=== PATIENT | female | born 1965 | race Caucasian/White ===

== ENCOUNTER 2017-09-24 15:25 | Observation (INO) | payer OTHER ==
[~2017-09-24] VITALS: Ht 162.6 cm; Wt 51.3 kg
--- NOTE | 2017-09-24 15:37 | ED CARDIAC/CP/PALPITATIONS ---
History of Present Illness General Chief Complaint: Chest Pain Stated Complaint: CP X3DAYS DOWN LEFT ARM NUMBNESS IN LEFT HAND Source: patient Exam Limitations: no limitations Vital Signs & Intake/Output Vital Signs & Intake/Output Vital Signs Date Time Temp Pulse Resp B/P B/P Pulse O2 O2 Flow FiO2 Mean Ox Delivery Rate 09/25 1516 102/64 09/25 1415 98.1 75 18 98/60 98 Room Air 09/25 0800 Room Air 09/25 0657 97.4 69 18 100/64 99 Room Air 09/24 2102 Room Air 09/24 2043 98.6 73 18 98/70 98 Room Air 09/24 2016 98.7 96 20 102/70 97 09/24 1843 98.7 79 18 118/68 100 Room Air 09/24 1719 Room Air 09/24 1640 74 16 136/86 100 Room Air ED Intake and Output 09/25 0000 09/24 1200 Intake Total 475 Output Total 300 Balance 175 Intake, IV 125 Intake, Oral 350 Number 0 Bowel Movements Output, Urine 300 Patient 113 lb Weight Weight Estimated Measurement Method Allergies Coded Allergies: Sulfa (Sulfonamide Antibiotics) (Mild, HIVES 09/24/17) Reconcile Medications Aspirin (Aspirin*) 81 MG TAB.CHEW 1 TAB PO DAILY Heart health Atorvastatin Calcium 40 MG TABLET 1 TAB PO DAILY Heart health Cholecalciferol (Vitamin D3) (Vitamin D) (Unknown Strength) TABLET (Unknown Dose) PO DAILY SUPPLEMENT (Reported) Cyanocobalamin (Vitamin B-12) (Vitamin B-12) (Unknown Strength) CAPSULE ( Unknown Dose) PO DAILY SUPPLEMENT (Reported) Potassium Chloride (Unknown Strength) TABLET.ER (Unknown Dose) PO DAILY SUPPLEMENT (Reported) Sertraline HCl 100 MG TABLET 1 TAB PO DAILY MENTAL HEALTH (Reported) Triage Nurses Notes Reviewed? yes Onset: Gradual Duration: worse persistent since (FEW DAYS), 1 MONTH Timing: recent history Location: central Radiation: jaw, shoulders, LEFT HAND Activities at Onset: rest Modifying Factors: Improves With: rest. Worsens With: movement. Aspirin Today: 325 mg x 1 Associated Symptoms: SHORTNESS OF BREATH HPI: 51 year old female with history of smoking and dyslipidemia presents to the ER with chest pain since friday. It radiates to her jaw and left arm, worsening with lifting up both arms. She also reports heaviness of her chest at rest, palpitations and fatigue. She went to her doctor and told him that chest pain has now started radiating to her left arm. According to the PCP patient has a known history of long-term smoking, she was seen by cross cut sawyer and recommended to follow-up with stress testing in [place] but never did so. Past History Travel History Traveled to [place] past 21 day No Medical History Any Pertinent Medical History? see below for history Cardiovascular: hyperlipidemia Renal: nephrolithiasis Psychiatric: depression Other Medical Hx: hypokalemia, EATING DISORDER Surgical History Surgical History: BREAST BIOPSY, LUMPECTOMY, TONSILLECTOMY Psychosocial History What is your primary language Slovenian Tobacco Use: Current Daily Use Daily Tobacco Use Amount/Type: =< 4 Cigarettes daily ETOH Use: denies use Illicit Drug Use: denies illicit drug use Family History Comment: FATHER - [place] 44 Y/O, HTN, DM MOTHER - DM Hx Contributory? Yes Review of Systems Review of Systems Constitutional: Reports: malaise, weakness. Denies: chills, fever. EENTM: Reports: no symptoms. Respiratory: Reports: short of breath. Denies: cough, sputum production. Cardiovascular: Reports: chest pain, palpitations. GI: Denies: abdominal pain. Genitourinary: Denies: discharge, dysuria. Musculoskeletal: Reports: no symptoms. Skin: Reports: no symptoms. Neurological/Psychological: Reports: no symptoms. Hematologic/Endocrine: Denies: bruising, bleeding, polyuria, polydipsia. Immunologic/Allergic: Denies: splenectomy. All Other Systems: Reviewed and Negative Physical Exam Physical Exam General Appearance: alert, awake, anxious, mild distress, thin Head: atraumatic, normal appearance Eyes: Bilateral: normal appearance, PERRL, EOMI. Ears, Nose, Throat: normal pharynx, normal ENT inspection, hearing grossly normal Neck: normal inspection, supple, full range of motion Respiratory: normal breath sounds, chest non-tender, no respiratory distress Cardiovascular: regular rate/rhythm, normal peripheral pulses Gastrointestinal: soft, non-tender Extremities: normal inspection, normal capillary refill, normal range of motion, no edema Neurologic/Psych: no motor/sensory deficits, awake, alert, oriented x 3 Skin: intact, normal color, warm/dry Core Measures ACS in differential dx? Yes CVA/TIA Diagnosis No Sepsis Present: No Sepsis Focused Exam Completed? No Progress Differential Diagnosis: AMI, myocarditis, pericarditis, pulmonary embolism, PVCs /PACs, unstable angina, V-fib/V-Tach, ANEMIA, ANXIETY, DEPRESSION, THYROID DISTURBANCE, EATING DISORDER Plan of Care: Orders Procedure Date/time Status Regular Diet 09/25 B Active THYROID STIMUL IMMUNOGLOB Ref$ 09/25 0700 Active BASIC ELECTROLYTES PLUS BUN&CR 09/25 0700 Complete THYROID STIMULATING HORMONE 09/25 0650 Complete TROPONIN LEVEL 09/25 0650 Complete TOTAL TRIODOTHYROXINE 09/25 0650 Complete PROLACTIN 09/25 0650 Complete LIPID PANEL 09/25 0650 Complete FREE T4 09/25 0650 Complete CREATINE PHOSPHOKINASE 09/25 0650 Complete THYROID ANTIBODY PANEL 09/25 0650 Complete EKG 09/25 0500 Active Discharge Patient 09/25 UNK Active Change service to 09/25 UNK Active Lab Add-on Test 09/25 UNK Active TROPONIN LEVEL 09/24 2200 Complete EKG 09/24 2200 Active Teach/Educate 09/24 2100 Active Pain Treatment and Response 09/24 2100 Active Nutritional Intake, Monitor 09/24 2100 Active Isolation 09/24 2100 Active Patient Care Conference 09/24 210 Active Activity/Ambulation 09/[address] in observation 09/24 1847 Active ED Holding Orders 09/24 1819 Active Pathway - chart 09/24 1815 Active House Staff 09/24 1815 Active Patient Data 09/24 1815 Active Code Status 09/24 1815 Active Patient Data 09/24 1735 Active Intake & Output 09/24 1718 Active VIT D 25 HYDROXY 09/24 1603 Complete THYROID STIMULATING HORMONE 09/24 1603 Complete TOTAL TRIODOTHYROXINE 09/24 1603 Complete FREE T4 09/24 1603 Complete WESTERGREN SED RATE 09/24 1603 Complete C-REACTIVE PROTEIN 09/24 1603 Complete VITAMIN B12 09/24 1603 Complete Lab Add-on Test 09/24 UNK Active VTE Mechanical Prophylaxis 09/24 UNK Active Vital Signs 09/24 UNK Active Telemetry/Cushion Spring Assembler 09/24 UNK Active Current Medications Sig/River Start time Last Medication Dose Stop Time Status Admin Atorvastatin Calcium 40 MG 1700 09/25 1700 AC (Lipitor) Aspirin 81 MG DAILY 09/25 1000 AC 09/25 (Aspirin) 0840 Enoxaparin Sodium 40 MG DAILY 09/25 1000 AC (Lovenox) Sertraline HCl 100 MG DAILY 09/25 1000 AC 09/25 (Zoloft) 0955 Acetaminophen 650 MG Q6P PRN 09/24 1815 AC (Tylenol) Laboratory Tests 09/25/17 0700: Thyroid Stim Immunoglob Pending 09/25/17 0650: Troponin I Cancelled 09/25/17 0650: Triglycerides Cancelled, Cholesterol Cancelled, LDL Cholesterol, Calc Cancelled, HDL Cholesterol Cancelled, Cholesterol/HDL Ratio Cancelled 09/25/17 0650: Anion Gap 12, Estimated GFR 58 L, BUN/Creatinine Ratio 26.0 H, Creatine Kinase 53, Troponin I < 0.01, Triglycerides 141, Cholesterol 218 H, LDL Cholesterol, Calc 131 H, HDL Cholesterol 59, Cholesterol/HDL Ratio 4, TSH < 0.015 L, Free T4 1.49, Total T3 1.02, Prolactin 14.4, Thyroglobulin Antibody < 15, Thyroid Peroxidase Ab < 28 09/24/17 2155: Troponin I < 0.01 09/24/17 1603: Anion Gap 14, Estimated GFR 58 L, BUN/Creatinine Ratio 23.0, Glucose 90, Calcium 9.7, Total Bilirubin 0.5, AST 13 L, ALT 11, Alkaline Phosphatase 62, Troponin I < 0.01, C-Reactive Prot, Quant < 0.5, Total Protein 7.1, Albumin 4.0, Globulin 3.1, Albumin/Globulin Ratio 1.3, Vitamin B12 > 1000 H, 25-OH Vitamin D Total 25.6 L, TSH < 0.015 L, Free T4 1.89 H, Total T3 1.16, PT 11.5, INR 1.05 , APTT 28, CBC w Diff NO MAN DIFF REQ, RBC 4.12 L, MCV 97.4, MCH 33.2 H, MCHC 34.1, RDW 13.5, MPV 8.7, Gran % 47.2, Lymphocytes % 41.4, Monocytes % 5.9, Eosinophils % 5.0, Basophils % 0.5, Absolute Granulocytes 3.2, Absolute Lymphocytes 2.8, Absolute Monocytes 0.4, Absolute Eosinophils 0.3, Absolute Basophils 0, ESR Westergren 11 complete pain relief afer nitropaste. aspirin taken prior to arrival. initial troponin negative. d/w dr garcia cardiology and hospitalist. will place on tele for 23 hr observation. Diagnostic Imaging: Viewed by Me: Radiology Read. Discussed w/RAD: Radiology Read. Initial ED EKG: NSR, ST depression (1 mm inferiolateral ) Rhythm Strip: normal sinus rhythm Comments: PATIENT: SARAVANAN SALMERON PRESENT AGE: 51 PATIENT ACCOUNT NO: [id number] : 63 LOCATION: [facility] ORDERING PHYSICIAN: Dee Dee Lovell MD SERVICE DATE: 09/24/17- EXAM TYPE: RAD - XRY-CHEST XRAY, TWO VIEWS EXAMINATION: XR CHEST CLINICAL INFORMATION: Shortness of breath COMPARISON: None TECHNIQUE: 2 views of the chest were obtained. FINDINGS: No significant abnormality is noted involving the heart, lungs, mediastinum, bony thorax or soft tissues. IMPRESSION: Unremarkable examination. DICTATED BY: Bigg Mandujano MD DATE/TIME DICTATED:09/24/171947 AUTOMOBILE GLASS TECHNICIAN:JONO DATE/TIME TRANSCRIBED:09/24/171947 CONFIDENTIAL, DO NOT COPY WITHOUT APPROPRIATE AUTHORIZATION. <Electronically signed in Other Vendor System> SIGNED BY: Bigg Mandujano MD 09/24/171951 Departure Departure Time of Disposition: 1732 Disposition: STILL A PATIENT Condition: Stable Clinical Impression Primary Impression: Unstable angina Referrals: Muna JUNE,Miles Lama Departure Forms: Customer Survey General Discharge Information Prescriptions: Current Visit Scripts Atorvastatin Calcium 1 TAB PO DAILY #30 TAB Aspirin (Aspirin*) 1 TAB PO DAILY #30 TAB Observation Note Spoke With: Dandre JUNE,Annalise Gupta Physician Advisor Notified: JW JUNE,YOANA Morillo (CASE MANAGEMENT) Place Patient In: Non-ED OBS Care Area Rationale for Observation: My rational for observation is as follows [TELE OBSERVATION, SERIAL EKG/TROPONIN , CARDIOLOGY EVALUATION DR GARCIA, ECHOCARDIOGRAM]. Critical Care Note Critical Care Note Critical Care Time: non-applicable
[2017-09-24 16:40] LABS: ABSOLUTE BASOPHIL COUNT 0 /CUMM (0.0-0.2); ABSOLUTE EOSINOPHIL COUNT 0.3 /CUMM (0.0-0.7); ABSOLUTE GRANULOCYTE CT 3.2 /CUMM (1.4-6.5); ABSOLUTE LYMPH COUNT 2.8 /CUMM (1.2-3.4); ABSOLUTE MONOCYTE COUNT 0.4 /CUMM (0.10-0.60); BASOPHIL % 0.5 % (0.0-2.0); GRANULOCYTE % 47.2 % (42.2-75.2); HEMATOCRIT 40.2 % (37-47); MEAN CORPUSCULAR HGB 33.2 PG (27.0-31.0); MEAN CORPUSCULAR HGB CONC 34.1 G/DL (33.0-37.0); MEAN CORPUSCULAR VOLUME 97.4 FL (81.0-99.0); MEAN PLATELET VOLUME 8.7 FL (7.4-10.4); PLATELET COUNT 249 /CUMM (130-400); RBC DISTRIBUTION WIDTH 13.5 % (11.5-14.5); RED BLOOD CELL CT 4.12 /CUMM (4.20-5.40); WHITE BLOOD CELL COUNT 6.7 /CUMM (4.8-10.8)
[2017-09-24 16:52] LABS: PT 11.5 SEC (9.4-12.5); PTT 28 SEC (25-37)
--- NOTE | 2017-09-24 17:42 | History & Physical ---
[place] 09/24/17 3225: General Information and HPI MD Statement: I have seen and personally examined SARAVANAN SALMERON and documented this H&P. The patient is a 51 year old F who presented with a patient stated chief complaint of chest pain, palpitation and feeling tired. []. Source of Information: patient Exam Limitations: no limitations History of Present Illness: 51 YO F smoker (3-4 cigarettes/d, cut down to 2packs/week for 40 yrs) with PMH of HTN not on medications, HLD, nephrolithiasis and depression came to ED with chief complaint of chest pain, palpitation for last 3 days and feeling tired for last 1 month. Patient reported that she was in her usual state of health 3 days back when he noticed having chest pain, 6/10, more on the left side, pressure- like, radiating to jaw and left arm associated with left arm numbness. Patient also reported associated palpitation that remained for 3-5 seconds. Patient reported that her pain doesn't increase with exertion and no relief with rest. She will always have some kind of pressure-like sensation. Patient reported that she went to her primary care physician today for her regular appointment to get vitamin B12 shot and he asked the doctor to get the EKG because he is not feeling good. After looking at the EKG and listening patient's symptoms the primary care doctor sent the patient to ED for further evaluation. Patient denied shortness of breath at rest, lightheadedness, headache, sweating, nausea, vomiting, blurry vision, increasing pain on exertion or deep breathing, abdominal pain, diarrhea, constipation and dysuria. Patient also endorsed that for last 1 month she is feeling more tired and the primary care physician did the blood test including vitamin B12 and blood sugars with lipid profile. Patient is getting vitamin B12 shots from primary care physician. Patient's blood pressure was high in primary care physician's office but at home it was normal that's why they take it as white coat syndrome and she is not on any medication. She is not taking any medication for her high cholesterol level. Patient used to see his chairman & ceo who advised her to quit smoking and he did the exercise stress test that was normal that was in 2013. Later on patient didn't follow the chairman & ceo. Considering patient's symptoms of tiredness and hard positive family history the primary care physician suggested her to make an appointment with chairman & ceo that is due on 03 of October. ED course: Vitals: Temperature 98.6, pulse 81, respiratory rate 18, blood pressure 134/93, oxygen saturation 100% on room air Labs: WBC count 6.7, hemoglobin 13.7, hematocrit 40.2, platelet count 249, sodium 138, potassium 4.0, anion gap 14, BUN 23, creatinine 1.0, BUN/creatinine ratio 23.0, glucose 90, troponin less than 0.01, AST 13, ALT 11, PT 11.5, INR 1.05 Patient received nitroglycerin in ED Allergies/Medications Allergies: Coded Allergies: Sulfa (Sulfonamide Antibiotics) (Mild, HIVES 09/24/17) Home Med list Cholecalciferol (Vitamin D3) (Vitamin D) (Unknown Strength) TABLET (Unknown Dose) PO DAILY SUPPLEMENT (Reported) Cyanocobalamin (Vitamin B-12) (Vitamin B-12) (Unknown Strength) CAPSULE ( Unknown Dose) PO DAILY SUPPLEMENT (Reported) Potassium Chloride (Unknown Strength) TABLET.ER (Unknown Dose) PO DAILY SUPPLEMENT (Reported) Sertraline HCl 100 MG TABLET 1 TAB PO DAILY MENTAL HEALTH (Reported) Past History Travel History Traveled to [place] past 21 day No Medical History Neurological: NONE EENT: NONE Cardiovascular: hyperlipidemia Respiratory: NONE Gastrointestinal: NONE Hepatic: NONE Renal: NONE Musculoskeletal: NONE Psychiatric: NONE Endocrine: NONE Blood Disorders: NONE Cancer(s): NONE Other Medical Hx: hypokalemia, EATING DISORDER Surgical History Surgical History: BREAST BIOPSY, LUMPECTOMY, TONSILLECTOMY Past Family/Social History Psychosocial History ETOH Use: denies use Illicit Drug Use: denies illicit drug use Review of Systems Review of Systems Constitutional: Reports: weakness. EENTM: Reports: no symptoms. Cardiovascular: Reports: chest pain, palpitations. Respiratory: Reports: no symptoms. GI: Reports: no symptoms. Genitourinary: Reports: no symptoms. Musculoskeletal: Reports: no symptoms. Skin: Reports: no symptoms. Neurological/Psychological: Reports: no symptoms. Hematologic/Endocrine: Reports: no symptoms. Exam & Diagnostic Data Last 24 Hrs of Vital Signs/I&O Vital Signs Date Time Temp Pulse Resp B/P B/P Pulse O2 O2 Flow FiO2 Mean Ox Delivery Rate 09/24 1719 Room Air 09/24 1640 74 16 136/86 100 Room Air 09/24 1538 98.6 81 18 134/93 9 Intake & Output 09/24 1600 09/24 0800 09/24 0000 Intake Total Output Total Balance Patient 113 lb Weight Weight Estimated Measurement Method Physical Exam General Appearance Alert, Oriented X3, Cooperative, No Acute Distress Skin No Rashes Skin Temp/Moisture Exam: Warm/Dry Sepsis Skin Exam (color): Normal for Ethnicity HEENT Atraumatic, PERRLA, EOMI Neck Supple Cardiovascular Normal S1, Normal S2 Lungs Clear to Auscultation Abdomen Soft, No Tenderness Neurological Normal Speech, Strength at 5/5 X4 Ext, Normal Tone, Sensation Intact Extremities No Edema Last 24 Hrs of Labs/[place]: Laboratory Tests 09/24/17 1603: Anion Gap 14, Estimated GFR 58 L, BUN/Creatinine Ratio 23.0, Glucose 90, Calcium 9.7, Total Bilirubin 0.5, AST 13 L, ALT 11, Alkaline Phosphatase 62, Troponin I < 0.01, Total Protein 7.1, Albumin 4.0, Globulin 3.1, Albumin/ Globulin Ratio 1.3, PT 11.5, INR 1.05, APTT 28, CBC w Diff NO MAN DIFF REQ, RBC 4.12 L, MCV 97.4, MCH 33.2 H, MCHC 34.1, RDW 13.5, MPV 8.7, Gran % 47.2, Lymphocytes % 41.4, Monocytes % 5.9, Eosinophils % 5.0, Basophils % 0.5, Absolute Granulocytes 3.2, Absolute Lymphocytes 2.8, Absolute Monocytes 0.4, Absolute Eosinophils 0.3, Absolute Basophils 0 Assessment/Plan Assessment: 51 YO F smoker (3-4 cigarettes/d, cut down to 2packs/week for 40 yrs) with PMH of HTN not on medications, HLD, nephrolithiasis and depression came to ED with chief complaint of chest pain, palpitation for last 3 days and feeling tired for last 1 month. We will keep the patient under observation on telemetry medicine floor to rule out ACS considering patient's positive family history and smoking. Acute coronary syndrome: -Considering no change in EKG and atypical chest pain, patient may not has ACS but we will keep her under observation to rule out ACS. -Serial EKG and trops to rule out ischemic cardiac event. -Continue aspirin -Continue atorvastatin. -We'll give patient nitroglycerin if he has pain -Check TSH -Cardiology consult -Echocardiogram History of hyperlipidemia: -We will start atorvastatin History of depression: -Continue home medication Smoking cessation: -Counseling for smoking cessation -Nicotine patch if needed DVT prophylaxis: Mechanical and subcutaneous Lovenox CODE STATUS: Full code As Ranked By This Provider Problem List: 1. Unstable angina Core Measures/Misc (03/16) Acute Coronary Syndrome ACS Diagnosis: Yes Congestive Heart Failure Congestive Heart Failure Diagnosis No Cerebrovascular Accident CVA/TIA Diagnosis: No VTE (View Protocol) VTE Risk Factors Age>40 No Mechanical VTE Prophylaxis d/t N/A MechProphylax Ordered No VTE Pharm Prophylaxis d/t NA PharmProphylax ordered Sepsis (View protocol) Sepsis Present: No Nas JUNE,[facility] 09/24/171915: Resident Review Statement Resident Statement: examined this patient, discussed with culinary internship, agreed with culinary internship, discussed with family Other Findings: Ms. Salmeron is a 51-year-old male with past medical history of hyperlipidemia on diet modification, smoking 40 years 3-4 cigarettes, benign breast cyst, eating disorder on Zoloft who presented to ED with chief complaint of chest pain since Friday. Patient reported fatigue and low appetite for over a month, had blood work with her PCP a month ago that revealed low vitamin B12, was started on vitamin B12 tabs and weekly shots. They also found hypokalemia and was started on potassium tabs, elevated blood course of cholesterol level was advised to quit smoking and to watch her diet. On Friday she started to have" chest tightness" that radiated to the left chest, left back, left jaw, left arm associated with occasional palpitation, shortness of breath. On presentation patient had nitroglycerin patch placed and pain resolved. Patient had echocardiogram and stress test in 2012 with normal results and basically had this workup because of hyperlipidemia however never reported similar chest pain before. Patient has positive family history of heart attack father at age 44 and diabetes mellitus. Problem list #Atypical chest pain #Hyperlipidemia #Fatigue and low appetite without fever, chills or weight changes #History of smoking Plan -Observing telemetry floor -Vitals every shift -We will start aspirin, statin -Trops and EKG 3 -Repeat BEP in AM -Lipid profile in a.m. -Cardiac consultation in a.m., I already spoke with Dr. Callahan to place the consultation for morning -ESR, C-reactive protein, vitamin B12, vitamin D, TSH -We will hold off IV heparin and to be started if patient developed chest pain or elevation in troponin or changes in EKG -DVT prophylaxis Lovenox -Code full -Diet regular Annalise Amos MD 09/24/172126: Attending MD Review Statement Attending Statement Attending MD Statement: examined this patient, discuss w/resident/PA/FUNERAL PLANNER, agreed w/resident/PA/FUNERAL PLANNER, reviewed EMR data (avail), reviewed images Attending Assessment/Plan: 51-year-old female with past medical history of hyperlipidemia not on any chronic medications, active tobacco use and strong family h/o CAD who is here with complaints of left upper chest and left back pain with left arm tingling and numbness and shortness of breath. The symptoms appear to have been going on, on and off for the past 3 days. Atypical in terms of lack of exertional syx also has syx of fatigue, muscle weakness and malaise. She has very mild EKG changes with questionable very minimal- less than a millimeter ST depression in the anterolateral leads. Her troponin is negative and right now she is completely chest pain-free after being given nitroglycerin patch in the ER. At this point I think it's prudent to bring her in as an observation to telemetry. Continue aspirin and start her on statin. Trend the enzymes and EKG, get an echocardiogram and a cardiology consult. Should she change in terms of ongoing chest pain, new EKG changes or positive enzymes then I think we will need to start her on IV heparin for unstable angina. At this point I think we can safely watch her and have cardiology see her to risk stratify her with regard to inpatient versus outpatient workup. Check B12, TSH, ESR and CRP for other non specific syx.
[2017-09-24] MEDS ORDERED: SERTRALINE HCL100 MG PO (18:30)
[2017-09-24] MEDS ORDERED: POTASSIUM CHLO20 ME4 PO (18:31)
[2017-09-24] MEDS ORDERED: VITAMIN B-121000 MC4 PO (18:32)
[2017-09-24] MEDS ORDERED: VITAMIN D1000 UNIT PO (18:32)
--- NOTE | 2017-09-24 19:52 | RADIOLOGY REPORT ---
EXAMINATION: XR CHEST CLINICAL INFORMATION: Shortness of breath COMPARISON: None TECHNIQUE: 2 views of the chest were obtained. FINDINGS: No significant abnormality is noted involving the heart, lungs, mediastinum, bony thorax or soft tissues. IMPRESSION: Unremarkable examination.
[2017-09-24 20:43] VITALS: BP 98/70
[2017-09-25 06:57] VITALS: BP 100/64
--- NOTE | 2017-09-25 07:11 | PN-Observation ---
See Addendum Observation Note Observation Note _ I have personally examined SARAVANAN SALMERON. her disposition is uncertain at this time. Before a determination can be made, she requires continued observation for the following reasons complain of atypical chest pain and palpitation []. Assessment/Plan Medical Assessment: 51 YO F smoker (3-4 cigarettes/d, cut down to 2packs/week for 40 yrs) with PMH of HTN not on medications, HLD, nephrolithiasis and depression came to ED with chief complaint of chest pain, palpitation for last 3 days and feeling tired for last 1 month. Problem List: 1. Hyperthyroidism 2. Atypical chest pain Plan: Atypical chest pain: -Serial EKGs and trops are negative for any cardiac event -Continue aspirin -Continue atorvastatin. -We recommended to the patient to stay overnight and we can arrange inpatient cardiac stress test but patient refused that and she wants to get a cardiac stress test as outpatient with her investment specialist. Hyperthyroidism: -Her TSH is 0.015 -We will follow endocrinology recommendation -Patient will get outpatient thyroid ultrasound. We will follow free T3, T and TSH level -Patient may have early signs of Bret thyroiditis or Graves' disease. We will check antibodies. History of hyperlipidemia: -We will start atorvastatin History of depression: -Continue home medication Smoking cessation: -Counseling for smoking cessation -Nicotine patch if needed DVT prophylaxis: Mechanical and subcutaneous Lovenox CODE STATUS: Full code Subjective Follow-up For: Atypical chest pain Hyperthyroidism Tele-Events Since Last Visit: Sinus rhythm with heart rate between 6569 Subjective: No overnight events. Patient remained afebrile overnight. Seen and examined this morning. Patient denied any chest pain, palpitation, nausea, vomiting, shortness of breath, abdominal pain and dysuria. We spoke to the patient if she can stay overnight and we can arrange inpatient cardiac stress test but patient refused that and she wants to get a cardiac stress test as outpatient with her investment specialist. Her blood pressure was checked in both arms in right arm it is 96 /74 and in left arm it's 102/64. Review of Systems Constitutional: Reports: no symptoms. EENTM: Reports: no symptoms. Cardiovascular: Reports: no symptoms. Respiratory: Reports: no symptoms. Gastrointestinal: Reports: no symptoms. Genitourinary: Reports: no symptoms. Musculoskeletal: Reports: no symptoms. Neurological/Psychological: Reports: no symptoms. Objective Last 24 Hrs of Vital Signs/I&O Vital Signs Date Time Temp Pulse Resp B/P B/P Pulse O2 O2 Flow FiO2 Mean Ox Delivery Rate 09/25 0657 97.4 69 18 100/64 99 Room Air 09/24 2102 Room Air 09/24 2043 98.6 73 18 98/70 98 Room Air 09/25 2015 98.7 96 20 102/70 97 09/24 1843 98.7 79 18 118/68 100 Room Air 09/24 1719 Room Air 09/24 1640 74 16 136/86 100 Room Air 09/24 1538 98.6 81 18 134/93 9 Intake & Output 09/25 1600 09/25 0800 09/25 0000 Intake Total 475 Output Total 300 Balance 175 Intake, IV 125 Intake, Oral 350 Number 0 Bowel Movements Output, Urine 300 Patient 113 lb Weight Physical Exam General Appearance: Alert, Oriented X3, Cooperative Skin: No Rashes Skin Temp/Moisture Exam: Warm/Dry Sepsis Skin Exam (color): Normal for Ethnicity HEENT: Atraumatic, PERRLA, EOMI Neck: Supple Cardiovascular: Normal S1, Normal S2 Lungs: Clear to Auscultation Abdomen: Soft, No Tenderness Neurological: Normal Speech, Strength at 5/5 X4 Ext, Normal Tone, Sensation Intact Extremities: No Edema Last 24 Hrs of Labs/Mics: Laboratory Tests 09/25/17 0650: Troponin I Cancelled 09/25/17 0650: Triglycerides Cancelled, Cholesterol Cancelled, LDL Cholesterol, Calc Cancelled, HDL Cholesterol Cancelled, Cholesterol/HDL Ratio Cancelled 09/25/17 0650: Sodium Pending, Potassium Pending, Chloride Pending, Carbon Dioxide Pending, Anion Gap Pending, BUN Pending, Creatinine Pending, BUN/Creatinine Ratio Pending , Troponin I Pending, Triglycerides Pending, Cholesterol Pending, LDL Cholesterol, Calc Pending, HDL Cholesterol Pending, Cholesterol/HDL Ratio Pending 09/24/17 2155: Troponin I < 0.01 09/24/17 1603: Anion Gap 14, Estimated GFR 58 L, BUN/Creatinine Ratio 23.0, Glucose 90, Calcium 9.7, Total Bilirubin 0.5, AST 13 L, ALT 11, Alkaline Phosphatase 62, Troponin I < 0.01, C-Reactive Prot, Quant < 0.5, Total Protein 7.1, Albumin 4.0, Globulin 3.1, Albumin/Globulin Ratio 1.3, Vitamin B12 > 1000 H, 25-OH Vitamin D Total 25.6 L, TSH < 0.015 L, Free T4 1.89 H, Total T3 1.16, PT 11.5, INR 1.05 , APTT 28, CBC w Diff NO MAN DIFF REQ, RBC 4.12 L, MCV 97.4, MCH 33.2 H, MCHC 34.1, RDW 13.5, MPV 8.7, Gran % 47.2, Lymphocytes % 41.4, Monocytes % 5.9, Eosinophils % 5.0, Basophils % 0.5, Absolute Granulocytes 3.2, Absolute Lymphocytes 2.8, Absolute Monocytes 0.4, Absolute Eosinophils 0.3, Absolute Basophils 0, ESR Westergren 11
--- NOTE | 2017-09-25 12:28 | Cons- Endocrinology ---
General Information and HPI Consulting Request Date of Consult: 09/25/17 Requested By: medical team Reason for Consult: evaluation of abnormal TFT Source of Information: patient, old records Exam Limitations: no limitations History of Present Illness: She is a 51 y.o female, who has had a hx of eating disorder, remote hx of hypothyroidism and was on thyroid hormone replacement years ago, presented with palpitation and chest discomfort. Blood work in ER showed TSH < 0.015, free T4 1.89 and TT3 1.16. She denied having any family hx of thyroid disorder or autoimmune disorders. She denied taking supplement like Biotin, etc. Allergies/Medications Allergies: Coded Allergies: Sulfa (Sulfonamide Antibiotics) (Mild, HIVES 09/24/17) Home Med List: Cholecalciferol (Vitamin D3) (Vitamin D) (Unknown Strength) TABLET (Unknown Dose) PO DAILY SUPPLEMENT (Reported) Cyanocobalamin (Vitamin B-12) (Vitamin B-12) (Unknown Strength) CAPSULE ( Unknown Dose) PO DAILY SUPPLEMENT (Reported) Potassium Chloride (Unknown Strength) TABLET.ER (Unknown Dose) PO DAILY SUPPLEMENT (Reported) Sertraline HCl 100 MG TABLET 1 TAB PO DAILY MENTAL HEALTH (Reported) Review of Systems Review of Systems Constitutional: Reports: see HPI. Cardiovascular: Reports: chest pain, palpitations. Respiratory: Denies: short of breath. GI: Denies: abdominal pain. Musculoskeletal: Denies: back pain. Hematologic/Endocrine: Denies: polyuria, polydipsia. Past History Travel History Traveled to [place] past 21 day No Medical History Blood Transfusion Hx: Yes Neurological: NONE EENT: NONE Cardiovascular: hyperlipidemia Respiratory: NONE Gastrointestinal: NONE Hepatic: NONE Renal: NONE Musculoskeletal: NONE Psychiatric: depression Endocrine: NONE Blood Disorders: NONE Cancer(s): NONE FUR MIXER/Reproductive: NONE Other Medical Hx: hypokalemia, EATING DISORDER Surgical History Surgical History: BREAST BIOPSY, LUMPECTOMY, TONSILLECTOMY Psychosocial History Smoking Status: Current Everyday Smoker ETOH Use: denies use Illicit Drug Use: denies illicit drug use Exam & Diagnostic Data Last 24 Hrs of Vital Signs/I&O Vital Signs Date Time Temp Pulse Resp B/P B/P Pulse O2 O2 Flow FiO2 Mean Ox Delivery Rate 09/25 0800 Room Air 09/25 0657 97.4 69 18 100/64 99 Room Air 09/24 2101 Room Air 03/28 2043 98.6 73 18 98/70 98 Room Air 09/25 2015 98.7 96 20 102/70 97 09/24 1843 98.7 79 18 118/68 100 Room Air 09/24 1719 Room Air 09/24 1640 74 16 136/86 100 Room Air 09/24 1538 98.6 81 18 134/93 9 Intake & Output 09/25 1600 09/25 0800 09/25 0000 Intake Total 475 Output Total 300 Balance 175 Intake, IV 125 Intake, Oral 350 Number 0 Bowel Movements Output, Urine 300 Patient 113 lb Weight Physical Exam General Appearance: no apparent distress Neck: no significant thyroid enlargement. Respiratory: lungs clear Cardiovascular: regular rate/rhythm Gastrointestinal: normal bowel sounds, soft, non-tender Extremities: no edema, no tremor Labs/Sarmad Results: Laboratory Tests 09/25 09/25 09/25 09/25 0700 0650 0650 0650 Chemistry Sodium (137 - 145 mmol/L) 138 Potassium (3.5 - 5.1 mmol/L) 3.8 Chloride (98 - 107 mmol/L) 108 H Carbon Dioxide (22 - 30 mmol/L) 18 L Anion Gap (5 - 16) 12 BUN (7 - 17 mg/dL) 26 H Creatinine (0.5 - 1.0 mg/dL) 1.0 Estimated GFR (>60 ml/min) 58 L BUN/Creatinine Ratio (7 - 25 %) 26.0 H Creatine Kinase (30 - 135 U/L) 53 Troponin I (< 0.11 ng/ml) Cancelled < 0.01 Triglycerides (<150 mg/dL) Cancelled 141 Cholesterol (<200 MG/DL) Cancelled 218 H LDL Cholesterol, Calc (65 - 129 mg/dL) Cancelled 131 H HDL Cholesterol (40 - 60 mg/dL) Cancelled 59 Cholesterol/HDL Ratio (0.00 - 4.23 %) Cancelled 4 TSH (0.270 - 4.200 uIU/mL) < 0.015 L Free T4 (0.64 - 1.79 ng/dL) 1.49 Total T3 (0.97 - 1.69 ng/mL) 1.02 Thyroid Stim Immunoglob Pending Immunology Thyroglobulin Antibody (< 61 U/mL) < 15 Thyroid Peroxidase Ab (< 61 U/mL) < 09/24 2155 1603 Chemistry Sodium (137 - 145 mmol/L) 138 Potassium (3.5 - 5.1 mmol/L) 4.0 Chloride (98 - 107 mmol/L) 106 Carbon Dioxide (22 - 30 mmol/L) 19 L Anion Gap (5 - 16) 14 BUN (7 - 17 mg/dL) 23 H Creatinine (0.5 - 1.0 mg/dL) 1.0 Estimated GFR (>60 ml/min) 58 L BUN/Creatinine Ratio (7 - 25 %) 23.0 Glucose (65 - 99 mg/dL) 90 Calcium (8.4 - 10.2 mg/dL) 9.7 Total Bilirubin (0.2 - 1.3 mg/dL) 0.5 AST (14 - 36 U/L) 13 L ALT (9 - 52 U/L) 11 Alkaline Phosphatase (<127 U/L) 62 Troponin I (< 0.11 ng/ml) < 0.01 < 0.01 C-Reactive Prot, Quant (<1.0 mg/dL) < 0.5 Total Protein (6.3 - 8.2 g/dL) 7.1 Albumin (3.5 - 5.0 g/dL) 4.0 Globulin (1.9 - 4.2 gm/dL) 3.1 Albumin/Globulin Ratio (1.1 - 2.2 %) 1.3 Vitamin B12 (239 - 931 pg/mL) > 1000 H 25-OH Vitamin D Total (30 - 100 ng/ml) 25.6 L TSH (0.270 - 4.200 uIU/mL) < 0.015 L Free T4 (0.64 - 1.79 ng/dL) 1.89 H Total T3 (0.97 - 1.69 ng/mL) 1.16 Coagulation PT (9.4 - 12.5 SEC) 11.5 INR (0.90 - 1.19) 1.05 APTT (25 - 37 SEC) 28 Hematology CBC w Diff NO MAN DIFF REQ WBC (4.8 - 10.8 /CUMM) 6.7 RBC (4.20 - 5.40 /CUMM) 4.12 L Hgb (12.0 - 16.0 G/DL) 13.7 Hct (37 - 47 %) 40.2 MCV (81.0 - 99.0 FL) 97.4 MCH (27.0 - 31.0 PG) 33.2 H MCHC (33.0 - 37.0 G/DL) 34.1 RDW (11.5 - 14.5 %) 13.5 Plt Count (130 - 400 /CUMM) 249 MPV (7.4 - 10.4 FL) 8.7 Gran % (42.2 - 75.2 %) 47.2 Lymphocytes % (20.5 - 51.1 %) 41.4 Monocytes % (1.7 - 9.3 %) 5.9 Eosinophils % (0 - 5 %) 5.0 Basophils % (0.0 - 2.0 %) 0.5 Absolute Granulocytes (1.4 - 6.5 /CUMM) 3.2 Absolute Lymphocytes (1.2 - 3.4 /CUMM) 2.8 Absolute Monocytes (0.10 - 0.60 /CUMM) 0.4 Absolute Eosinophils (0.0 - 0.7 /CUMM) 0.3 Absolute Basophils (0.0 - 0.2 /CUMM) 0 ESR Westergren (0 - 20 MM) 11 Assessment/Plan Assessment/Plan She is a 51 y.o female, who has had a hx of eating disorder, remote hx of hypothyroidism and was on thyroid hormone replacement years ago, presented with palpitation and chest discomfort. Blood work in ER showed TSH < 0.015, free T4 1.89 and TT3 1.16. Hyperthyroidism-- underlying etiology is unclear --- repeat TFT to look for a trend; ---check thyroid antibody panel and TSI; ---obtain thyroid u.s; f/u in office after discharge. The plan has been discussed with patient and team Consult Acknowledgment - Thank you for your consult request.
--- NOTE | 2017-09-25 13:09 | Cons- Cardiology ---
General Information and HPI Consulting Request Date of Consult: 09/25/17 Requested By: Jaiden Davies MD Reason for Consult: Chest pain Source of Information: patient, old records Exam Limitations: no limitations History of Present Illness: Saravanan Salmeron is a 51-year-old female with no history of heart disease. She has in the past had some chest pain and palpitations and had a cardiac workup a few years ago which apparently was normal. She has a past history of hypertension but is not currently on any medication. She also has a history of dyslipidemia not currently on medications. She she does smoke lightly at this time and is trying to give it up. She has recent complaints of left-sided chest pains sometimes exertional and sometimes not, as well as shortness of breath. Her physician recommended she come to the hospital where she was admitted. She has a nonspecifically mildly abnormal EKG. So far enzymes are negative, there've been no arrhythmias and she is not having any chest pain at this time. Allergies/Medications Allergies: Coded Allergies: Sulfa (Sulfonamide Antibiotics) (Mild, HIVES 09/24/17) Home Med List: Aspirin (Aspirin*) 81 MG TAB.CHEW 1 TAB PO DAILY Heart health . Atorvastatin Calcium 40 MG TABLET 1 TAB PO DAILY Heart health . Cholecalciferol (Vitamin D3) (Vitamin D) (Unknown Strength) TABLET (Unknown Dose) PO DAILY SUPPLEMENT (Reported) Cyanocobalamin (Vitamin B-12) (Vitamin B-12) (Unknown Strength) CAPSULE ( Unknown Dose) PO DAILY SUPPLEMENT (Reported) Potassium Chloride (Unknown Strength) TABLET.ER (Unknown Dose) PO DAILY SUPPLEMENT (Reported) Sertraline HCl 100 MG TABLET 1 TAB PO DAILY MENTAL HEALTH . Review of Systems Review of Systems: She has generalized fatigue Past History Travel History Traveled to [place] past 21 day No Medical History Blood Transfusion Hx: Yes Neurological: NONE EENT: NONE Cardiovascular: hyperlipidemia Respiratory: NONE Gastrointestinal: NONE Hepatic: NONE Renal: NONE Musculoskeletal: NONE Psychiatric: depression Endocrine: NONE Blood Disorders: NONE Cancer(s): NONE AIRFREIGHT OPERATIONS AGENT/Reproductive: NONE Other Medical Hx: hypokalemia, EATING DISORDER Surgical History Surgical History: BREAST BIOPSY, LUMPECTOMY, TONSILLECTOMY Psychosocial History Smoking Status: Current Everyday Smoker ETOH Use: denies use Illicit Drug Use: denies illicit drug use Exam & Diagnostic Data Vital Signs and I&O Vital Signs Date Time Temp Pulse Resp B/P B/P Pulse O2 O2 Flow FiO2 Mean Ox Delivery Rate 09/25 0800 Room Air 09/25 0657 97.4 69 18 100/64 99 Room Air 09/242 Room Air 09/24 2043 98.6 73 18 98/70 98 Room Air 09/25 2015 98.7 96 20 102/70 97 09/24 1843 98.7 79 18 118/68 100 Room Air 09/24 1719 Room Air 09/24 1640 74 16 136/86 100 Room Air 09/24 1538 98.6 81 18 134/93 9 Intake & Output 09/25 1600 09/25 0800 09/25 0000 09/24 1600 09/24 0800 09/24 0000 Intake Total 475 Output Total 300 Balance 175 Intake, IV 125 Intake, Oral 350 Number 0 Bowel Movements Output, Urine 300 Patient 113 lb 113 lb Weight Weight Estimated Measurement Method Physical Exam: Well-developed well-nourished middle-aged female in no acute distress HEENT exam normal Neck veins not distended Carotids normal Chest clear Heart regular rhythm, no murmurs, gallops or rubs Extremities good pulses no edema Labs/Sarmad Results: Laboratory Tests 09/25 09/25 09/25 09/25 0700 0650 0650 0650 Chemistry Sodium (137 - 145 mmol/L) 138 Potassium (3.5 - 5.1 mmol/L) 3.8 Chloride (98 - 107 mmol/L) 108 H Carbon Dioxide (22 - 30 mmol/L) 18 L Anion Gap (5 - 16) 12 BUN (7 - 17 mg/dL) 26 H Creatinine (0.5 - 1.0 mg/dL) 1.0 Estimated GFR (>60 ml/min) 58 L BUN/Creatinine Ratio (7 - 25 %) 26.0 H Creatine Kinase (30 - 135 U/L) 53 Troponin I (< 0.11 ng/ml) Cancelled < 0.01 Triglycerides (<150 mg/dL) Cancelled 141 Cholesterol (<200 MG/DL) Cancelled 218 H LDL Cholesterol, Calc (65 - 129 mg/dL) Cancelled 131 H HDL Cholesterol (40 - 60 mg/dL) Cancelled 59 Cholesterol/HDL Ratio (0.00 - 4.23 %) Cancelled 4 TSH (0.270 - 4.200 uIU/mL) < 0.015 L Free T4 (0.64 - 1.79 ng/dL) 1.49 Total T3 (0.97 - 1.69 ng/mL) 1.02 Thyroid Stim Immunoglob Pending Immunology Thyroglobulin Antibody (< 61 U/mL) < 15 Thyroid Peroxidase Ab (< 61 U/mL) < 28 09/24 09/24 2155 1603 Chemistry Sodium (137 - 145 mmol/L) 138 Potassium (3.5 - 5.1 mmol/L) 4.0 Chloride (98 - 107 mmol/L) 106 Carbon Dioxide (22 - 30 mmol/L) 19 L Anion Gap (5 - 16) 14 BUN (7 - 17 mg/dL) 23 H Creatinine (0.5 - 1.0 mg/dL) 1.0 Estimated GFR (>60 ml/min) 58 L BUN/Creatinine Ratio (7 - 25 %) 23.0 Glucose (65 - 99 mg/dL) 90 Calcium (8.4 - 10.2 mg/dL) 9.7 Total Bilirubin (0.2 - 1.3 mg/dL) 0.5 AST (14 - 36 U/L) 13 L ALT (9 - 52 U/L) 11 Alkaline Phosphatase (<127 U/L) 62 Troponin I (< 0.11 ng/ml) < 0.01 < 0.01 C-Reactive Prot, Quant (<1.0 mg/dL) < 0.5 Total Protein (6.3 - 8.2 g/dL) 7.1 Albumin (3.5 - 5.0 g/dL) 4.0 Globulin (1.9 - 4.2 gm/dL) 3.1 Albumin/Globulin Ratio (1.1 - 2.2 %) 1.3 Vitamin B12 (239 - 931 pg/mL) > 1000 H 25-OH Vitamin D Total (30 - 100 ng/ml) 25.6 L TSH (0.270 - 4.200 uIU/mL) < 0.015 L Free T4 (0.64 - 1.79 ng/dL) 1.89 H Total T3 (0.97 - 1.69 ng/mL) 1.16 Coagulation PT (9.4 - 12.5 SEC) 11.5 INR (0.90 - 1.19) 1.05 APTT (25 - 37 SEC) 28 Hematology CBC w Diff NO MAN DIFF REQ WBC (4.8 - 10.8 /CUMM) 6.7 RBC (4.20 - 5.40 /CUMM) 4.12 L Hgb (12.0 - 16.0 G/DL) 13.7 Hct (37 - 47 %) 40.2 MCV (81.0 - 99.0 FL) 97.4 MCH (27.0 - 31.0 PG) 33.2 H MCHC (33.0 - 37.0 G/DL) 34.1 RDW (11.5 - 14.5 %) 13.5 Plt Count (130 - 400 /CUMM) 249 MPV (7.4 - 10.4 FL) 8.7 Gran % (42.2 - 75.2 %) 47.2 Lymphocytes % (20.5 - 51.1 %) 41.4 Monocytes % (1.7 - 9.3 %) 5.9 Eosinophils % (0 - 5 %) 5.0 Basophils % (0.0 - 2.0 %) 0.5 Absolute Granulocytes (1.4 - 6.5 /CUMM) 3.2 Absolute Lymphocytes (1.2 - 3.4 /CUMM) 2.8 Absolute Monocytes (0.10 - 0.60 /CUMM) 0.4 Absolute Eosinophils (0.0 - 0.7 /CUMM) 0.3 Absolute Basophils (0.0 - 0.2 /CUMM) 0 ESR Westergren (0 - 20 MM) 11 Diagnostic Data EKG Results EKG on admission shows sinus rhythm at a rate of [address] depression in the lateral leads. Repeat EKG a few hours later shows sinus rhythm at a rate of 63 with poor R-wave progression and borderline inverted T-wave in V2. Repeat this morning shows sinus rhythm at a rate of 67 with again poor R-wave progression and borderline T-wave inversions anteriorly. CXR Results PATIENT: SARAVANAN SALMERON PRESENT AGE: 51 PATIENT ACCOUNT NO: [id number] : 63 LOCATION: [facility] ORDERING PHYSICIAN: DeeD ee Lovell MD SERVICE DATE: 09/24/17- EXAM TYPE: RAD - XRY-CHEST XRAY, TWO VIEWS EXAMINATION: XR CHEST CLINICAL INFORMATION: Shortness of breath COMPARISON: None TECHNIQUE: 2 views of the chest were obtained. FINDINGS: No significant abnormality is noted involving the heart, lungs, mediastinum, bony thorax or soft tissues. IMPRESSION: Unremarkable examination. DICTATED BY: Bigg Mandujano MD DATE/TIME DICTATED:09/24/171947 ENTERPRISE ARCHITECT MANAGER:JONO DATE/TIME TRANSCRIBED:09/24/171947 CONFIDENTIAL, DO NOT COPY WITHOUT APPROPRIATE AUTHORIZATION. <Electronically signed in Other Vendor System> SIGNED BY: Bigg Mandujano MD 09/24/171951 Assessment/Plan Assessment/Plan The patient is having atypical symptoms. She has a borderline electrocardiogram but no evolutionary changes. She has negative enzymes 3. I think there is a low likelihood she is having a cardiac event at this time. I think she can be discharged for outpatient stress testing. Consult Acknowledgment - Thank you for your consult request.
[2017-09-25] MEDS ORDERED: ATORVASTATIN CA40 M1 PO ×2 (13:50→15:57)
[2017-09-25] MEDS ORDERED: ASPIRIN81 M4 PO ×2 (13:50→15:57)
--- NOTE | 2017-09-25 13:54 | Patient Discharge Instructions ---
Discharge Instructions General Discharge Information You were seen/treated for: Atypical chest pain Watch for these problems: Chest pain, shortness of breath, sweating, nausea, vomiting and palpitation. If you experience any of these symptoms please come to ED or call your primary care physician. Special Instructions: Please follow up with her primary care physician in one week Please follow up his usual condemnation engineer in 1 week and talk to your condemnation engineer for outpatient stress test. Follow-up with endocrinology as outpatient for thyroid ultrasound. Diet Recommended Diet: Heart Healthy Activity Activity Self Limited: Yes Acute Coronary Syndrome Inclusion Criteria At DC or during hospital stay patient has or had the following: ACS DIAGNOSIS No Discharge Core Measures Meds if any: Prescribed or Continued at Discharge Meds if any: NOT Prescribed or Continued at Discharge Congestive Heart Failure Inclusion Criteria At DC or during hospital stay patient has or had the following: CHF DIAGNOSIS No Discharge Core Measures Meds if any: Prescribed or Continued at Discharge Meds if any: NOT Prescribed or Continued at Discharge Cerebrovascular accident Inclusion Criteria At DC or during hospital stay patient has or had the following: CVA/TIA Diagnosis No Discharge Core Measures Meds if any: Prescribed or Continued at Discharge Meds if any: NOT Prescribed or Continued at Discharge Venous thromboembolism Inclusion Criteria VTE Diagnosis No VTE Type NONE VTE Confirmed by (Test) NONE Discharge Core Measures - Per Current guidelines, there needs to be overlap - treatment for the first 5 days of Warfarin therapy. - If discharged on Warfarin prior to 5 days of - overlap therapy, the patient will need to be - assessed for post discharge needs including - *Post discharge parental anticoagulation - *Warfarin and/or parental anticoagulation education - *Follow up date to check INR post discharge At least 5 days overlap therapy as Inpatient No Meds if any: Prescribed or Continued at Discharge Note: Overlap Therapy is Warfarin and Anticoagulant Meds if any: NOT Prescribed or Continued at Discharge
[2017-09-25 14:15] VITALS: BP 98/60
[2017-09-25 15:16] VITALS: BP 102/64
[2017-09-25] MEDS ORDERED: SERTRALINE HCL100 MG PO (15:57)
== END 2017-09-25 16:03 ==
LOC: ERH 15:25 → ERHI 18:49 → 1NO 18:49 → ENRESERV 19:13 → ENTRNSPT 20:12 → EDTRNSPTSTS 20:32 → EDTRNSPT 20:32 → 1NO 20:36 → CMPTRNSPT 20:45 → 1NO 09-25 07:49 → ENPENDDIS 09-25 15:40 → ENTRNSPT 09-25 15:41 → 1NO 09-25 16:03 → CMPTRNSPT 09-25 16:09
PROVIDERS: Emergency Medicine; Student in an Organized Health Care Education/Training Program
DX: R07.89 Other chest pain (principal); F17.200 Nicotine dependence, unspecified, uncomplicated; I10 Essential (primary) hypertension; E78.5 Hyperlipidemia, unspecified; Z87.442 Personal history of urinary calculi; F32.9 Major depressive disorder, single episode, unspecified; R00.2 Palpitations; F50.9 Eating disorder, unspecified; Z79.82 Long term (current) use of aspirin; Z79.899 Other long term (current) drug therapy
CPT/HCPCS: 6020; 36592; 71046; 82436; 86376; 86800; 93005; 93010; G0378; J1650; J3490

== ENCOUNTER → 2017-09-30 | Day surgery (SDC) | payer OTHER ==
[~2017-09-30] MED LIST: ASPIRIN81 M4 PO; ATORVASTATIN CA40 M1 PO; POTASSIUM CHLO20 ME4 PO; SERTRALINE HCL100 MG PO; VITAMIN B-121000 MC4 PO; VITAMIN D1000 UNIT PO
--- NOTE | 2017-09-30 05:55 | ED GI/GU/ABDOMINAL COMPLAINT ---
History of Present Illness General Chief Complaint: General Adult Stated Complaint: " LT BACK INTO GROIN PAIN " Source: patient, family, old records Exam Limitations: no limitations Vital Signs & Intake/Output Vital Signs & Intake/Output Vital Signs Date Time Temp Pulse Resp B/P B/P Pulse O2 O2 Flow FiO2 Mean Ox Delivery Rate 09/30 0546 98.6 98 20 149/96 96 Room Air Allergies Coded Allergies: Sulfa (Sulfonamide Antibiotics) (Mild, HIVES 09/24/17) Reconcile Medications Aspirin (Aspirin*) 81 MG TAB.CHEW 1 TAB PO DAILY Heart health . Atorvastatin Calcium 40 MG TABLET 1 TAB PO DAILY Heart health . Cholecalciferol (Vitamin D3) (Vitamin D) (Unknown Strength) TABLET (Unknown Dose) PO DAILY SUPPLEMENT (Reported) Cyanocobalamin (Vitamin B-12) (Vitamin B-12) (Unknown Strength) CAPSULE ( Unknown Dose) PO DAILY SUPPLEMENT (Reported) Potassium Chloride (Unknown Strength) TABLET.ER (Unknown Dose) PO DAILY SUPPLEMENT (Reported) Sertraline HCl 100 MG TABLET 1 TAB PO DAILY MENTAL HEALTH . Triage Note: PER PT SINCE YESTERDAY PAIN TO L BACK RADIATES TO L GROIN, ?DIFF URINATING Triage Nurses Notes Reviewed? yes ? N Is pt currently ? No HPI: Patient presents with left lower back pain that radiates around to her left groin. The pain is constant. The pain started yesterday afternoon and early increased throughout the night. Patient was unable to sleep all night secondary to the pain. There is no nausea or vomiting. There are no aggravating or mitigating factors. Currently the pain is 8 out of 10. There are no fevers or chills. There is no dysuria. Patient has diagnoses of stairs any blood in her urine. Patient has had kidney stones in the past but does not know how this pain compares to kidney stone pain. (Crow JUNE,Jerod Morillo) Past History Travel History Traveled to [place] past 21 day No Medical History Any Pertinent Medical History? see below for history Neurological: NONE EENT: NONE Cardiovascular: hyperlipidemia Respiratory: NONE Gastrointestinal: NONE Hepatic: NONE Renal: NONE Musculoskeletal: NONE Psychiatric: depression Endocrine: NONE Blood Disorders: NONE Cancer(s): NONE REGULATORY SUBMISSIONS ASSOCIATE/Reproductive: NONE Other Medical Hx: hypokalemia, EATING DISORDER History of MRSA: No History of VRE: No History of CDIFF: No Influenza Vaccine: 06/30/17 Surgical History Surgical History: BREAST BIOPSY, LUMPECTOMY, TONSILLECTOMY Psychosocial History What is your primary language Spanish Tobacco Use: Current Daily Use Daily Tobacco Use Amount/Type: => 5 Cigarettes daily ETOH Use: occasional use Illicit Drug Use: denies illicit drug use Family History Hx Contributory? No (Crow JUNE,Jerod Morillo) Review of Systems Review of Systems Constitutional: Reports: no symptoms. EENTM: Reports: no symptoms. Respiratory: Reports: no symptoms. Cardiovascular: Reports: no symptoms. GI: Reports: see HPI, abdominal pain. Genitourinary: Reports: no symptoms. Musculoskeletal: Reports: see HPI, back pain. Skin: Reports: no symptoms. Neurological/Psychological: Reports: no symptoms. Hematologic/Endocrine: Reports: no symptoms. Immunologic/Allergic: Reports: no symptoms. All Other Systems: Reviewed and Negative (Crow JUNE,Jerod Morillo) Physical Exam Physical Exam General Appearance: well developed/nourished, alert, awake, moderate distress Head: atraumatic Eyes: Bilateral: PERRL, EOMI. Ears, Nose, Throat, Mouth: hearing grossly normal, DRY MUCOSA Neck: normal inspection, supple, full range of motion Respiratory: normal breath sounds, chest non-tender, no respiratory distress, lungs clear Cardiovascular: regular rate/rhythm, normal peripheral pulses Gastrointestinal: normal bowel sounds, soft, non-tender, no organomegaly Back: CVA tenderness (L) Extremities: normal range of motion Neurologic/Psych: no motor/sensory deficits, awake, alert, oriented x 3, normal gait, normal mood/affect Skin: intact, normal color, warm/dry Core Measures ACS in differential dx? No Sepsis Present: No Sepsis Focused Exam Completed? No (Crow JUNE,Jerod Morillo) Progress Differential Diagnosis: kidney stone, ovarian cyst, ovarian torsion, UTI/pyelo Plan of Care: Orders Procedure Date/time Status URINALYSIS 09/30 05 Active COMPREHENSIVE METABOLIC PANEL 09/30 05 Complete CBC WITHOUT DIFFERENTIAL 09/30 05 Complete Current Medications Sig/River Start time Last Medication Dose Stop Time Status Admin Sodium Chloride 1,000 ML BOLUS ONE 09/30 06 AC 09/30 (Normal Saline 0.9%) 09/30 0659 0607 Laboratory Tests 09/30/17 0600: Anion Gap 14, Estimated GFR 52 L, BUN/Creatinine Ratio 25.5 H, Glucose 115 H, Calcium 9.5, Total Bilirubin 0.5, AST 32, ALT 31, Alkaline Phosphatase 72, Total Protein 7.0, Albumin 4.1, Globulin 2.9, Albumin/Globulin Ratio 1.4, CBC w Diff NO MAN DIFF REQ, RBC 4.32, MCV 97.1, MCH 32.3 H, MCHC 33.2, RDW 13.5, MPV 8.4, Gran % 64.1, Lymphocytes % 26.7, Monocytes % 5.9, Eosinophils % 3.1, Basophils % 0.2, Absolute Granulocytes 6.2, Absolute Lymphocytes 2.6, Absolute Monocytes 0.6 , Absolute Eosinophils 0.3, Absolute Basophils 0 Diagnostic Imaging: Viewed by Me: CT Scan. Discussed w/RAD: CT Scan. Radiology Impression: PATIENT: SARAVANAN SALMERON PRESENT AGE: 51 PATIENT ACCOUNT NO: [id number] : 63 LOCATION: [facility] ORDERING PHYSICIAN: Jerod Maria MD SERVICE DATE: 09/30/17 EXAM TYPE: CAT - CT ABD & PELVIS W/O IV CONTRAS EXAMINATION: CT ABDOMEN AND PELVIS WITHOUT CONTRAST CLINICAL INFORMATION: Left flank pain. COMPARISON: None TECHNIQUE: Multidetector volumetric imaging was performed from the superior aspect of the liver through the pubic symphysis. Sagittal and coronal reformatted images were obtained on the technologist's workstation. DLP: 250.84 mGy-cm FINDINGS: LUNG BASES: The visualized lung bases are unremarkable. LIVER, GALLBLADDER, AND BILIARY TREE: The liver is normal in size, shape, and attenuation. No focal hepatic lesion or biliary ductal dilatation is present. The gallbladder is unremarkable with no evidence of radiopaque gallstones, gallbladder wall thickening, or obvious pericholecystic inflammatory changes. PANCREAS: Unremarkable. SPLEEN: Unremarkable. ADRENAL GLANDS: Unremarkable. KIDNEYS AND URETERS: There is distention of the renal pelvis calyces and the ureter of the left kidney collecting system to the ureterovesical junction. There is an obstructing stone at the left ureterovesical junction. The stone measures approximate 7 x 5 mm, axial image 560 (3). There are additional stones in the left kidney which are not obstructive. In the upper pole there is a 6 x 3 mm stone. In the midpole there is a 3 mm stone and at the lower pole there is a 2 mm stone. In the right kidney there is no stone and there is no stone in the right ureter. No hydronephrosis on the right. BLADDER: Unremarkable. GASTROINTESTINAL TRACT: The small and large bowel are unremarkable. The appendix is unremarkable. ABDOMINAL WALL: No significant hernia is appreciated. LYMPH NODES: Normal. VASCULAR: Unremarkable. PELVIC VISCERA: Unremarkable. OSSEOUS STRUCTURES: Unremarkable. IMPRESSION: Hydronephrosis of left kidney due to an obstructing 7 x 5 mm stone at the left ureterovesical junction. There are additional nonobstructive stones in the left kidney. DICTATED BY: Jay Puente MD DATE/TIME DICTATED:09/30/17625 FINANCIAL PROJECT MANAGER:JONO DATE/TIME TRANSCRIBED:09/30/17625 CONFIDENTIAL, DO NOT COPY WITHOUT APPROPRIATE AUTHORIZATION. <Electronically signed in Other Vendor System> SIGNED BY: Jay Puente MD 09/30/17632 Initial ED EKG: none Hand-Off Endorsed To: Marcelo Portillo MD Endorsed Time: 0700 Pending: other (CALL TO THE OR) (Jerod Maria MD) Comments: Although patient endorsed to me I did not participate in this patient's care and she went to the operating room from the emergency department. (Lindsey JUNE,Marcelo Felix) Departure Departure Disposition: STILL A PATIENT Condition: Stable Clinical Impression Primary Impression: Kidney stone on left side Referrals: Josemanuel Adkins MD (PCP/Family) Departure Forms: Customer Survey General Discharge Information OR/GI Note Spoke With: Finn Granda MD ED Treatment Decision: SARAVANAN SALMERON requires urgent operative management or an emergent procedure that cannot be performed in the Emergency Room setting. Transport To: [facility] (Jerod Maria MD)
[2017-09-30 06:13] LABS: ABSOLUTE BASOPHIL COUNT 0 /CUMM (0.0-0.2); ABSOLUTE EOSINOPHIL COUNT 0.3 /CUMM (0.0-0.7); ABSOLUTE GRANULOCYTE CT 6.2 /CUMM (1.4-6.5); ABSOLUTE LYMPH COUNT 2.6 /CUMM (1.2-3.4); ABSOLUTE MONOCYTE COUNT 0.6 /CUMM (0.10-0.60); BASOPHIL % 0.2 % (0.0-2.0); EOSINOPHIL % 3.1 % (0-5); GRANULOCYTE % 64.1 % (42.2-75.2); HEMATOCRIT 41.9 % (37-47); MEAN CORPUSCULAR HGB 32.3 PG (27.0-31.0); MEAN CORPUSCULAR HGB CONC 33.2 G/DL (33.0-37.0); MEAN CORPUSCULAR VOLUME 97.1 FL (81.0-99.0); MEAN PLATELET VOLUME 8.4 FL (7.4-10.4); PLATELET COUNT 257 /CUMM (130-400); RBC DISTRIBUTION WIDTH 13.5 % (11.5-14.5); RED BLOOD CELL CT 4.32 /CUMM (4.20-5.40); WHITE BLOOD CELL COUNT 9.7 /CUMM (4.8-10.8)
--- NOTE | 2017-09-30 06:33 | CT SCAN REPORT ---
EXAMINATION: CT ABDOMEN AND PELVIS WITHOUT CONTRAST CLINICAL INFORMATION: Left flank pain. COMPARISON: None TECHNIQUE: Multidetector volumetric imaging was performed from the superior aspect of the liver through the pubic symphysis. Sagittal and coronal reformatted images were obtained on the technologist's workstation. DLP: 250.84 mGy-cm FINDINGS: LUNG BASES: The visualized lung bases are unremarkable. LIVER, GALLBLADDER, AND BILIARY TREE: The liver is normal in size, shape, and attenuation. No focal hepatic lesion or biliary ductal dilatation is present. The gallbladder is unremarkable with no evidence of radiopaque gallstones, gallbladder wall thickening, or obvious pericholecystic inflammatory changes. PANCREAS: Unremarkable. SPLEEN: Unremarkable. ADRENAL GLANDS: Unremarkable. KIDNEYS AND URETERS: There is distention of the renal pelvis calyces and the ureter of the left kidney collecting system to the ureterovesical junction. There is an obstructing stone at the left ureterovesical junction. The stone measures approximate 7 x 5 mm, axial image 560 (3). There are additional stones in the left kidney which are not obstructive. In the upper pole there is a 6 x 3 mm stone. In the midpole there is a 3 mm stone and at the lower pole there is a 2 mm stone. In the right kidney there is no stone and there is no stone in the right ureter. No hydronephrosis on the right. BLADDER: Unremarkable. GASTROINTESTINAL TRACT: The small and large bowel are unremarkable. The appendix is unremarkable. ABDOMINAL WALL: No significant hernia is appreciated. LYMPH NODES: Normal. VASCULAR: Unremarkable. PELVIC VISCERA: Unremarkable. OSSEOUS STRUCTURES: Unremarkable. IMPRESSION: Hydronephrosis of left kidney due to an obstructing 7 x 5 mm stone at the left ureterovesical junction. There are additional nonobstructive stones in the left kidney.
[2017-09-30 07:29] VITALS: BP 126/76
--- NOTE | 2017-09-30 12:06 | Cons- Urology ---
General Information and HPI Consulting Request Date of Consult: 09/30/17 Requested By: MD Crow, Jerod-Emergency Reason for Consult: left hydro. severe colic Source of Information: patient, family, old records Exam Limitations: no limitations History of Present Illness: 51 yr old with known hx stones: presents to ER with sudden onset left colic- unrelieved by [address] reveals left hdyro with 6mm ureter stone: Denies fever, chills, N/V. Allergies/Medications Allergies: Coded Allergies: Sulfa (Sulfonamide Antibiotics) (Mild, HIVES 09/24/17) Home Med List: Aspirin (Aspirin*) 81 MG TAB.CHEW 1 TAB PO DAILY Heart health . Atorvastatin Calcium 40 MG TABLET 1 TAB PO DAILY Heart health . Cholecalciferol (Vitamin D3) (Vitamin D) (Unknown Strength) TABLET (Unknown Dose) PO DAILY SUPPLEMENT (Reported) Cyanocobalamin (Vitamin B-12) (Vitamin B-12) (Unknown Strength) CAPSULE ( Unknown Dose) PO DAILY SUPPLEMENT (Reported) Potassium Chloride (Unknown Strength) TABLET.ER (Unknown Dose) PO DAILY SUPPLEMENT (Reported) Sertraline HCl 100 MG TABLET 1 TAB PO DAILY MENTAL HEALTH . 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 Ambulation: independent IADLs Independent: shopping, housework, finances, food prep, telephone, transportation , medication admin. Employment History Retired? unknown Review of Systems Review of Systems Constitutional: Reports: malaise, weakness. EENTM: Denies: no symptoms. Cardiovascular: Denies: no symptoms. Respiratory: Denies: no symptoms. GI: Reports: abdominal pain, bloating. Genitourinary: Reports: dysuria. Musculoskeletal: Denies: no symptoms. Skin: Denies: no symptoms. Exam & Diagnostic Data Vital Signs and I&O Vital Signs Date Time Temp Pulse Resp B/P B/P Pulse O2 O2 Flow FiO2 Mean Ox Delivery Rate 09/30 728 98.7 78 18 126/76 97 Room Air 09/30 0546 98.6 98 20 149/96 96 Room Air Intake & Output 09/30 1600 09/30 0800 09/30 0000 09/29 1600 09/29 0800 09/29 0000 Intake Total Output Total Balance Patient 113 lb Weight Physical Exam General Appearance: well developed/nourished, no apparent distress Head: atraumatic, normal appearance Eyes: Bilateral: normal appearance. Respiratory: normal breath sounds Cardiovascular: regular rate/rhythm Back: CVA tenderness (L) Extremities: normal inspection Neurologic/Psych: no motor/sensory deficits, awake, alert, oriented x 3 Cranial Nerves: normal hearing Skin: intact, normal color, warm/dry Reproductive: Normal female genitalia Pelvic: Appearance Normal Last 24 Hours of Labs: Laboratory Tests 09/30 09/30 0714 0600 Chemistry Sodium (137 - 145 mmol/L) 140 Potassium (3.5 - 5.1 mmol/L) 4.0 Chloride (98 - 107 mmol/L) 102 Carbon Dioxide (22 - 30 mmol/L) 24 Anion Gap (5 - 16) 14 BUN (7 - 17 mg/dL) 28 H Creatinine (0.5 - 1.0 mg/dL) 1.1 H Estimated GFR (>60 ml/min) 52 L BUN/Creatinine Ratio (7 - 25 %) 25.5 H Glucose (65 - 99 mg/dL) 115 H Calcium (8.4 - 10.2 mg/dL) 9.5 Total Bilirubin (0.2 - 1.3 mg/dL) 0.5 AST (14 - 36 U/L) 32 ALT (9 - 52 U/L) 31 Alkaline Phosphatase (<127 U/L) 72 Total Protein (6.3 - 8.2 g/dL) 7.0 Albumin (3.5 - 5.0 g/dL) 4.1 Globulin (1.9 - 4.2 gm/dL) 2.9 Albumin/Globulin Ratio (1.1 - 2.2 %) 1.4 Hematology CBC w Diff NO MAN DIFF REQ WBC (4.8 - 10.8 /CUMM) 9.7 RBC (4.20 - 5.40 /CUMM) 4.32 Hgb (12.0 - 16.0 G/DL) 13.9 Hct (37 - 47 %) 41.9 MCV (81.0 - 99.0 FL) 97.1 MCH (27.0 - 31.0 PG) 32.3 H MCHC (33.0 - 37.0 G/DL) 33.2 RDW (11.5 - 14.5 %) 13.5 Plt Count (130 - 400 /CUMM) 257 MPV (7.4 - 10.4 FL) 8.4 Gran % (42.2 - 75.2 %) 64.1 Lymphocytes % (20.5 - 51.1 %) 26.7 Monocytes % (1.7 - 9.3 %) 5.9 Eosinophils % (0 - 5 %) 3.1 Basophils % (0.0 - 2.0 %) 0.2 Absolute Granulocytes (1.4 - 6.5 /CUMM) 6.2 Absolute Lymphocytes (1.2 - 3.4 /CUMM) 2.6 Absolute Monocytes (0.10 - 0.60 /CUMM) 0.6 Absolute Eosinophils (0.0 - 0.7 /CUMM) 0.3 Absolute Basophils (0.0 - 0.2 /CUMM) 0 Urines Urinalysis LIGHT H Urine Color (YEL,AMB,STR) YEL Urine Clarity (CLEAR) HAZY H Urine pH (5.0 - 8.0) 6.5 Ur Specific [place] (1.001 - 1.035) 1.015 Urine Protein (NEG,<30 MG/DL) 30 H Urine Ketones (NEG) NEG Urine Nitrite (NEG) POS H Urine Bilirubin (NEG) NEG Urine Urobilinogen (0.1 - 1.0 EU/dl) 0.2 Ur Leukocyte Esterase (NEG) LARGE H Ur Microscopic SEDIMENT EXAMINED Urine RBC (0 - 5 /HPF) 25-50 H Urine WBC (0 - 2 /HPF) PACKD H Ur Epithelial Cells (NONE,FEW) MOD H Urine Bacteria (NEG/NONE) MANY H Urine Hemoglobin (NEG) LARGE H Urine Glucose (N MG/DL) NEG Imaging Results: PATIENT: SARAVANAN SALMERON PRESENT AGE: 51 PATIENT ACCOUNT NO: [id number] : 63 LOCATION: [facility] ORDERING PHYSICIAN: Jerod Maria MD SERVICE DATE: 09/30/17 EXAM TYPE: CAT - CT ABD & PELVIS W/O IV CONTRAS EXAMINATION: CT ABDOMEN AND PELVIS WITHOUT CONTRAST CLINICAL INFORMATION: Left flank pain. COMPARISON: None TECHNIQUE: Multidetector volumetric imaging was performed from the superior aspect of the liver through the pubic symphysis. Sagittal and coronal reformatted images were obtained on the technologist's workstation. DLP: 250.84 mGy-cm FINDINGS: LUNG BASES: The visualized lung bases are unremarkable. LIVER, GALLBLADDER, AND BILIARY TREE: The liver is normal in size, shape, and attenuation. No focal hepatic lesion or biliary ductal dilatation is present. The gallbladder is unremarkable with no evidence of radiopaque gallstones, gallbladder wall thickening, or obvious pericholecystic inflammatory changes. PANCREAS: Unremarkable. SPLEEN: Unremarkable. ADRENAL GLANDS: Unremarkable. KIDNEYS AND URETERS: There is distention of the renal pelvis calyces and the ureter of the left kidney collecting system to the ureterovesical junction. There is an obstructing stone at the left ureterovesical junction. The stone measures approximate 7 x 5 mm, axial image 560 (3). There are additional stones in the left kidney which are not obstructive. In the upper pole there is a 6 x 3 mm stone. In the midpole there is a 3 mm stone and at the lower pole there is a 2 mm stone. In the right kidney there is no stone and there is no stone in the right ureter. No hydronephrosis on the right. BLADDER: Unremarkable. GASTROINTESTINAL TRACT: The small and large bowel are unremarkable. The appendix is unremarkable. ABDOMINAL WALL: No significant hernia is appreciated. LYMPH NODES: Normal. VASCULAR: Unremarkable. PELVIC VISCERA: Unremarkable. OSSEOUS STRUCTURES: Unremarkable. IMPRESSION: Hydronephrosis of left kidney due to an obstructing 7 x 5 mm stone at the left ureterovesical junction. There are additional nonobstructive stones in the left kidney. Assessment/Plan Assessment/Plan left ureter stone with hydro/colic: cysto-stent now. Copies To: Finn Granda MD Acknowledgment - Thank you for your consult request. Attending MD Review Statement Attending Statement Attending Statement: examined this patient, discussed with family, discussed w/nursing Attending Assessment/Plan: pt for left stent now.
--- NOTE | 2017-09-30 12:14 | Operative Report ---
Operative/Inv Procedure Report Surgery Date: 09/30/17 Name of Procedure: cysto: left retrograde pyelo:fluoroscopy: left stent insertion Pre-Operative Diagnosis: left obstructing ureter stone with hydro. Post-Operative Diagnosis: same Estimated Blood Loss: scant Surgeon/Patrol Sergeant: MD Granda Arnold-urology Anesthesia: moderate sedation Implants: 4.7 X 22 stent: left Complications: none Operative/Procedure Note Note: The patient was taken to the operating room placed OR table in supine position. Timeout was performed, with the patient awake, in order to confirm anesthesia, and other pertinent perioperative information. After adequate anesthesia and antibiotics the patient was then placed lithotomy stirrups, draped and prepped in the usual surgical fashion. A 22 [place] cystoscope sheath with 30 angle lens was inserted into the urethra, subsequently into the bladder without difficulty. Upon thorough and systematic surveillance, the bladder was noted to be free of tumor free of stone. Both ureteral orifices were in their orthotopic position with clear eflux from the both sides. The left orifice was intubated with an open-ended ureteral access catheter. Retrograde pyelogram was gently performed in order to confirm hydronephrosis, and a 7mm distal left ureter filling defect consistent with stone, and to map the anatomy of the ureter and kidney using fluoroscopy. The left orifice was intubated with a 0.035 Glidewire , which was advanced into the left ureter, and renal pelvis, without difficulty, bypassing the distal left ureter stone. Over this Glidewire a 4.7 X 22 Bard onlay stent was rail-roaded into the left ureter without difficulty. With the proximal coil of the stent was noted in the left renal pelvis, and the distal coil in the bladder. The Glidewire was removed, and the stent remained in proper place. A large amount of purulent discharge was noted to drained from the left kidney, after placement of the stents. The bladder was then drained via the cystoscope, and then removed without difficulty. All sponege needle and instrument count were correct at the end of the case. The patient tolerated the procedure well, and was taken to recovery room in satisfactory condition. Discharge Disposition: PACU CC: Finn Granda MD
--- NOTE | 2017-09-30 14:54 | RADIOLOGY REPORT ---
EXAMINATION: XR ABDOMEN CLINICAL INDICATION: Left ureteroscopy with stent placement COMPARISON: CT abdomen/pelvis from earlier today TECHNIQUE: Fluoroscopic assistance was provided in the operating room. 2 spot images were saved. Total fluoroscopic time was 0.6 minutes. Dose was 0.0932 mGym2. FINDINGS: The first image demonstrates contrast opacification of the distal ureter with an ovoid filling defect in the distal ureter in keeping with the calculus seen on today's earlier CT. Second image demonstrates a wire overlying the region of the upper ureter and renal pelvis. IMPRESSION: Fluoroscopic assistance provided for left ureteroscopy with stent placement. Please see procedure note for full details.
== END ==
LOC: ERH 05:39 → ER-OR 05:44 → STS 12:20
PROVIDERS: Emergency Medicine
DX: N20.1 Calculus of ureter (principal); N13.30 Unspecified hydronephrosis; Z87.442 Personal history of urinary calculi; F17.200 Nicotine dependence, unspecified, uncomplicated
CPT/HCPCS: 74018; 74176; 81001; 96361; 96374; C2617; J0131; J0696; J1885; J2250; J3010

== ENCOUNTER → 2017-10-21 | Day surgery (SDC) | payer OTHER ==
[~2017-10-21] VITALS: Ht 160 cm; Wt 51.3 kg
[~2017-10-21] MED LIST changes: +LIPITOR20 M2 PO
--- NOTE | 2017-10-21 13:28 | Operative Report ---
Operative/Inv Procedure Report Surgery Date: 10/21/17 Name of Procedure: left ESWL, fluoroscopy; cysto-left stent removal. Pre-Operative Diagnosis: left renal stone with stent Post-Operative Diagnosis: same Estimated Blood Loss: scant Surgeon/Lathmaker: Finn Granda MD Anesthesia: moderate sedation Specimens: left Complications: none Condition: improved. Operative/Procedure Note Note: The patient was taken to the operating room and placed on the ESWL table in supine position. Timeout was performed, with the patient awake, in order to confirm correct patients identity, procedure, laterality, anesthesia, and other pertinent perioperative information. After adequate anesthesia and antibiotics, the patient was then positioned so that the LEFT Flank was overlying the ESWL table's cut-out, above the concussion dome of the shockwave generator. Fluroscopy, as well as renal US, was used to locate the stone, and LEFT stent. Using fluoroscopy with AP, and oblique views, the position of the left renal stone was confirmed and optimized in the c-arm crosshairs. The stone, previously in the ureter, and manipulated into the left renal pelvis, was approximately 6 mm in size, and was visible on fluroscopy. Renal ultrasound was also performed on the left side, confirming the presence of the left stone, and no hydronephrosis, with normal parenchyma, and no solid tumor. Flurosocpy was used in an AP and oblique views to maximize the position of the stone for ESWL. After optimized positioning, ESWL was initiated at low power levels. After noting the patient's tolerance to the shockwaves, the power was maximized. The renal stone was noted to bounce/move with each shockwave with real-time renal US visualization. Toward the end of the procedure, the composition of the left stones had changed significantly, indicating the breaking of the left renal stone. A total of 2500 shockwaves were delivered to the stone. The patient was then placed in a frog-leg position, draped and prepped in the usual surgical fashion. A well lubricated, 22 Polish cystoscope sheath with 30 angle lens was inserted without difficulty. On entering the bladder the bladder was noted to be free of tumor, and free of stone. Both ureteral orifices were in their ortotopic positions. The left stent was seen in proper place protruding through the left ureter orifice. Using the alligator forcep, under direct visualization, the left stent was grasped. The cystoscope along with entire left stent was then gently removed without difficulty. All sponge, needle, and instrument count were correct at the end of the case. The patient the tolerated both the left cysto/stent removal, and left ESWL procedures well. The patient was awakened, then taken to recovery in satisfactory condition via stretcher. The pt. was dischared with pain meds, diet orders, and intructions to catch fragments with straining the urine. The patient was given requisition to have follow-up renal ultrasound and KUB in 2-4 weeks, prior to follow-up visit in my office. Findings: 6 mm left renal stone-2500 Discharge Disposition: Same Day Admissions CC: Jesus Alberto JUNE,Finn
== END ==
LOC: STS 03:22
DX: N20.0 Calculus of kidney (principal)
CPT/HCPCS: J2250

== ENCOUNTER → 2017-12-23 | Day surgery (SDC) | payer OTHER ==
[~2017-12-23] VITALS: Ht 162.6 cm; Wt 50.3 kg
--- NOTE | 2017-12-23 10:01 | Operative Report ---
Operative/Inv Procedure Report Surgery Date: 12/23/17 Name of Procedure: left renal eswl: fluoroscopy Pre-Operative Diagnosis: left kidney stone 6mm with colic Post-Operative Diagnosis: same Estimated Blood Loss: none Surgeon/Inspector Water Pollution Control: Finn Granda MD Anesthesia: moderate sedation Specimens: none Complications: none Operative/Procedure Note Note: The patient was taken to the operating room and placed on the ESWL table in supine position. With the patient awake, timeout was performed to confirm correct identity, procedure, laterality, anesthesia, and other pertinent jose daniel- operative information. After adequate anesthesia, the patient was positioned so that the patient's left flank was positioned over the table cut-out, overlying the dome of the treatment head. Once the patient was adequately sedated, fluoroscopy, as well as Renal ultrasound was used to locate the LEFT renal stone. Renal US confirmed the presence of the stone which measured it to be approximately 6 mm upper pole stone. The stone was visible with fluoroscopy. Renal US revealed, no hydronephrosis, and no solid tumor, and presence of the stone. The position of the stone was optimized by using fluoroscopy in AP and oblique views;placing the stone within the ESWL c-arm crosshairs. Once the stone's position was optimized , the LEFT renal E.S.W.L. was initiated at low energy level. After noting the patient's tolerance to the shockwaves, the intensitiy was ramped up to maximum level. At the end of the procedure, the left renal stone had dissintegrated. Of note, a total of 2500 shockwaves were delivered to the stone. The patient tolerated the ESWL procedures well, was awakened, then taken to recovery in satisfactory condition via stretcher. The patient was dischared home with pain medications, diet orders, and intructions to catch fragments by straining the urine. The patient to to have follow-up renal ultrasound and KUB in 1 to 2 weeks, prior to follow-up visit in my office. He will then proceed with metabolic stone work-up. Discharge Disposition: Same Day Admissions CC: Finn Granda MD
== END ==
LOC: STS 02:10
DX: N20.0 Calculus of kidney (principal)
CPT/HCPCS: J2250